=== PATIENT | female | born 2000 | race Caucasian/White ===

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

== ENCOUNTER → 2019-01-15 11:45 | Outpatient (CLI) | payer OTHER, SELFPAY ==
[2018-02-25 16:09] VITALS: BMI 24.3
--- NOTE | 2019-01-15 11:50 | RAD_ITS ---
STUDY: X-RAY - RIGHT FOOT CLINICAL: Female, 18 years old. Pain TECHNIQUE: 3 view(s) of the foot. COMPARISON: None. FINDINGS: Normal talus, calcaneus, and tarsal bones. Normal visualized subtalar, talonavicular, calcaneocuboid, tarsal and tarsometatarsal articulations. Normal metatarsi. Normal metatarsophalangeal joint of the great toe. Normal tibial and fibular sesamoid bones. Normal interphalangeal joint of the great toe. Normal phalanges of the great toe. Normal second through fifth metatarsophalangeal joints. Normal interphalangeal joints and phalanges of the lesser toes. The soft tissue structures are unremarkable. RAD/Foot min 3 Views IMPRESSION: Normal x-ray examination of the foot. Electronically Signed: David Paniagua MD at 12:01 EDT , Service support ,
== END ==
PROVIDERS: Family Provider Family Medicine; PCP Family Medicine; Referring Provider Family Medicine; Visit Provider Family Medicine
DX: S92.901A Unspecified fracture of right foot, initial encounter for closed fracture (principal); X58.XXXA Exposure to other specified factors, initial encounter; Y93.9 Activity, unspecified; Y92.9 Unspecified place or not applicable; Y99.9 Unspecified external cause status
CPT/HCPCS: 73630

== ENCOUNTER 2020-02-18 15:30 | Outpatient (RCR) | payer OTHER, SELFPAY ==
--- NOTE | 2020-01-26 18:53 | HP.PTEVAL_ITS ---
Patient's Visit Information KARLA LAWRENCE is a 19 year old F referred to Physical Therapy by Dr. Abilio Morrell MD with a diagnosis of RIGHT LATERAL KNEE PAIN ,I-T BAND AND BILATERAL GLUTEAL/PIRIFORMIS PAIN. Date of Evaluation: 01/26/20 Physical Therapist: Ever Cruz, PT, Cert MDT, OCS - Visit Plan Frequency: 2x /Week Duration: 6 Weeks Plan: PT INTERVENTIONS MANUAL TECH-FOAM ROLLING,STICK IT BAND/QUAD/PIRIFORMIS,HIP FLEXORS,STRETCHING,QUADS/HIP FLEXORS/IT BAND ,S TRENGTHENING HIP ESPECIALLY,QUAD/HAMS,CORE WORK,AND MODLATIES NEEDED - Subjective This 19 y/o female presents to physical therapy with right knee. Patient has had right knee pain HS but has worsen since last December after 07/[address] Morrell recommeded PT. No diagnostics. Pain located right lateral knee and right hip. Aggraveting factors running,descending stairs,squatting,kneeling .Increase activity will cause symptoms. Kneeling on knee causes parathesia. Sleeping. Alleviating factors rest.Symptoms wosre at work LB pain to gluts. Patient symptoms affects job demands and return to running. Patie t condition affects QOL. SOCIAL: Students [employer]. VOCATION: [employer] - Pain Right Knee Pain Intensity (Out of 10): 1 Pain Intensity Range: 10 - Objective POSTURE: knee valgus mild ,genu recurvatum. GAIT: reciprocal pattern. PALPATION: very tender piriformis bilateral,I -T BAND,mild joint line ,and insertion of IT band. FLEXABLITY: quads/hip flexor mod tight ,I T BAND mod ,. MMT: quads/hams 4/5,hip flexors right 3+/5,left 4-/5 ,hip abd 3+/5 right,left 4- /5. MUSCULAR ENDURANCE: poor abd unable to maintain lordosis - Special Tests R Hip Scour: Negative R Hip Hansa - IT Band: Positive R Knee Conner - Meniscus: Negative R Knee Scarlett - ACL: Negative R Knee Anterior Drawer - ACL: Negative R Knee Posterior Sag - PCL: Negative R Knee Valgus - MCL: Negative R Knee Varus - LCL: Negative R Knee Patellar Grind - PFS: Negative - Goals Goal 1:: Patient to be I with hEP Goal Time Frame: 4-6 Weeks Goal 2:: Patient to decrease knee pain and hip ,I T band pain by 70 % or > to improve function and running Goal Time Frame: 4-6 Weeks Goal 3:: Patient improve flexability of I-T band,hip flexor to improve function. Goal Time Frame: 4-6 Weeks Goal 4:: Pateint increase strength of hip 4-/5 to improve function. Goal Time Frame: 4-6 Weeks Goal 5:: Patient to increase LFES score by 10 points or > to improve function with ADL'S Goal Time Frame: 4-6 Weeks - Rehabilitation Potential Physical Therapy Diagnosis: This patient has right knee pain with tight I T BAND,hip,quads,hip flexors ,weakness hip ,poor core strength ,unable to squat with tight hip flexors,pain with stairs squats/kneeling thus benifit from skilled PT Rehabilitation Potential: Good - Anticipated Interventions Patient/Client Instruction: Educate patient on: Condition, Plan of Care For the Purpose of:: To decrease pain, To increase ROM, To improve muscle performance and motor function, To improve ability to perform ADL's, To increase tolerance to activity/condition/position, To improve ability of physical actions for home/community/work/leisure, To improve health of tissue, To decrease soft tissue restriction, To increase flexibility/ROM, To reduce risk of recurrence, To improve ability to perform tasks related to life management Therapeutic Exercise to Include: Strength training, Power training, Endurance training, Flexibilty training, Active ROM, Dynamic Lumbar Stabilization Comment: HIP/KNEE For the Purpose of:: To decrease pain, To increase ROM, To improve muscle performance and motor function, To improve ability to perform ADL's, To increase tolerance to activity/condition/position, To improve performance and independence with ADL's, To improve ability of physical actions for home/community/work/leisure, To improve health of tissue, To reduce risk of recurrence, To improve ability to perform tasks related to life management Manual Therapy Techniques to Include: Soft tissue mobilization Comment: STICK/FOAM,I-TBAND,HIP FLEXORS For the Purpose of:: To decrease pain, To increase ROM, To improve nutrient delivery to tissue, To increase oxygenation perfusion, To improve health of tissue, To decrease soft tissue restriction, To increase flexibility/ROM TENS: Yes IF ES: Yes Cryotherapy (ice pack, ice massage): Yes Thermo therapy (hot pack): Yes Ultrasound (thermal/non thermal): Yes For the Purpose of:: To decrease pain, To increase ROM, To improve muscle performance and motor function, To improve ability to perform ADL's, To improve performance and independence with ADL's, To improve health of tissue, To dec rease soft tissue restriction, To increase flexibility/ROM, To improve safety Thank you for the opportunity to evaluate your patient. For Medicare and Medicare HMO plans, please review the plan of care and approve it. It will need to be FAXED BACK to us at [phone] for Medicare purposes. For Medicare only, by signing this I certify the plan of care. Please let me know if there are questions or concerns regarding this plan of care. Physician Signature: Date:
--- NOTE | 2020-02-18 16:17 | HP.PTDCSUM ---
It has been my pleasure to treat KARLA LAWRENCE referred by Dr. Abilio Morrell MD, with the diagnosis of RIGHT LATERAL KNEE PAIN ,I-T BAND AND BILATERAL GLUTEAL/PIRIFORMIS PAIN for a total of 9 visit(s). Discharge Date: 02/18/20 Please see the following information for a summary of their discharge status. Subjective: Doing well ,return to running ..No pain. Right Knee Pain Intensity (Out of 10): 1 % Improvement: 85 Objective/Function: POSTURE: WFL. PALPATION: LESS TENDERNESS IT BAND. GAIT: NORMAL CHARU. MMT: QUADS/HAMS 5/5,HIP 4/5 Goal 1:: Patient to be I with hEP Goal Progress: Goal Met Goal 2:: Patient to decrease knee pain and hip ,I T band pain by 70 % or > to improve function and running Goal Progress: Goal Met Goal 3:: Patient improve flexability of I-T band,hip flexor to improve function. Goal Progress: Goal Met Goal 4:: Pateint increase strength of hip 4-/5 to improve function. Goal Progress: Goal Met Goal 5:: Patient to increase LFES score by 10 points or > to improve function with ADL'S Plan: D/C If there are questions or concerns regarding this patient's physical therapy, please feel free to call me at [phone]. Thank you for the referral of this patient. Sincerely, Ever Cruz PT, Cert MDT, OCS
== END 2020-02-18 19:00 | disposition home or self-care (01) ==
LOC: PT 15:30
PROVIDERS: PCP Family Medicine; Referring Provider Family Medicine; Visit Provider Family Medicine
DX: M76.31 Iliotibial band syndrome, right leg (principal)
CPT/HCPCS: 97110; 97140; 97162; 97530